=== PATIENT | male | born 1985 | race Caucasian/White ===

== ENCOUNTER 2017-04-28 21:49 | Emergency (ER) | payer BC ==
[~2017-04-28] VITALS: Ht 170.2 cm; Wt 68.0 kg
[2017-04-28 21:56] VITALS: Ht 170.2 cm; Wt 68.0 kg
[2017-04-29] MEDS ORDERED: HYDROCODONE/APAP (5/325) TAB PO ONE
[2017-04-29 00:09] LABS: BASOPHILS % 0.5 % (0.0-2.0); EOSINOPHILS # 0.2 10^3/ul (0.0-0.5); EOSINOPHILS % 2.6 % (0.0-7.0); HEMATOCRIT 48.6 % (42.0-52.0); HEMOGLOBIN 16.7 g/dl (14.0-18.0); LYMPHOCYTES # 2.9 10^3/ul (0.8-2.9); MEAN CORPUSCULAR HEMOGLOBIN 33.6 pg (29.0-33.0); MEAN CORPUSCULAR HGB CONC 34.4 g/dl (32.0-37.0); MEAN CORPUSCULAR VOLUME 97.8 fl (82.0-101.0); MEAN PLATELET VOLUME 10.7 fl (7.4-10.4); MONOCYTE # 0.5 10^3/ul (0.3-0.9); MONOCYTES % 6.5 % (0.0-11.0); PLATELET COUNT 212 10^3/UL (140-415); RED BLOOD COUNT 4.97 10^6/ul (4.70-6.10); RED CELL DISTRIBUTION WIDTH 11.9 % (11.5-14.5); WHITE BLOOD COUNT 7.7 10^3/ul (4.8-10.8)
[2017-04-29 00:13] LABS: ADD UMIC NO; UR ASCORBIC ACID NEGATIVE (NEGATIVE); UR BILIRUBIN (Dip) NEGATIVE (NEGATIVE); UR BLOOD (Dip) NEGATIVE (NEGATIVE); UR CLARITY CLEAR (CLEAR); UR COLOR COLORLESS (YELLOW); UR GLUCOSE (Dip) NEGATIVE (NEGATIVE); UR KETONES (Dip) NEGATIVE (NEGATIVE); UR LEUKOCYTE ESTERASE (Dip) NEGATIVE Leu/ul (NEGATIVE); UR NITRITE (Dip) NEGATIVE (NEGATIVE); UR SPECIFIC GRAVITY (Dip) 1.001 (1.003-1.030); UR TOTAL PROTEIN (Dip) NEGATIVE (NEGATIVE); UR UROBILINOGEN (Dip) NEGATIVE (NEGATIVE)
--- NOTE | 2017-04-29 00:23 | ERD ---
ER Documentation Chief Complaint Chief Complaint abdominal pain w/ back pain x 2 weeks HPI This is a 31-year-old male who presents the emergency department complaining of abdominal pain for the past 3 weeks. States the pain was all over. States he does not have any abdominal pain currently. States that he took Tylenol for pain. He had some diarrhea. 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 States he has pain going into his buttocks. Denies any fevers or chills, nausea or vomiting, dysuria, hematuria. ROS All systems reviewed and are negative except as per history of present illness. Medications Home Meds Active Scripts Acetaminophen* (Tylophen*) 500 Mg Capsule, 1 CAP PO Q6H Y for PAIN AND OR ELEVATED TEMP, #30 CAP Prov:CONNOR MCCLELLAN PA-C 04/29/17 Dicyclomine Hcl* (Bentyl*) 10 Mg Capsule, 10 MG PO QID, #20 CAP Prov:CONNOR MCCLELLAN PA-C 04/29/17 Naproxen* (Naprosyn*) 500 Mg Tablet, 500 MG PO BID Y for PAIN AND/OR INFLAMMATION, #30 TAB Prov:CONNOR MCCLELLAN PA-C 04/29/17 Allergies Allergies: Coded Allergies: No Known Allergy (Unverified , 04/28/17) PMhx/Soc Hx Psychiatric Problems: Yes (anxiety) Hx Alcohol Use: Yes (32 ozx4 daily) Hx Substance Use: No Hx Tobacco Use: Yes (cigar daily) Smoking Status: Current every day smoker Physical Exam Vitals Vital Signs Date Time Temp Pulse Resp B/P Pulse Ox O2 Delivery O2 Flow Rate FiO2 04/28/17 21:56 98.3 83 20 130/70 98 Physical Exam Const: NAD Head: Atraumatic Eyes: Normal Conjunctiva ENT: Normal External Ears, Nose and Mouth. Neck: Full range of motion..~ No meningismus. Resp: Clear to auscultation bilaterally Cardio: Regular rate and rhythm, no murmurs Abd: Soft, non tender, non distended. Normal bowel sounds. No tenderness to McBurney's. Skin: No petechiae or rashes Back: Lumbar spine midline tenderness and bilateral paraspinal tenderness. Pain with trunk extension. Pulses 2+. Distal neurovascularly intact. Ext: No cyanosis, or edema Neur: Awake and alert Psych: Normal Mood and Affect Result Diagram: 04/28/17 2345 04/28/17 2345 Results 24 hrs Laboratory Tests Test 04/28/17 23:45 White Blood Count 7.710^3/ul Red Blood Count 4.9710^6/ul Hemoglobin 16.7g/dl Hematocrit 48.6% Mean Corpuscular Volume 97.8fl Mean Corpuscular Hemoglobin 33.6pg Mean Corpuscular Hemoglobin Concent 34.4g/dl Red Cell Distribution Width 11.9% Platelet Count 73457^3/UL Mean Platelet Volume 10.7fl Neutrophils % 52.0% Lymphocytes % 38.0% Monocytes % 6.5% Eosinophils % 2.6% Basophils % 0.5% Nucleated Red Blood Cells % 0.0/100WBC Neutrophils # 4.010^3/ul Lymphocytes # 2.910^3/ul Monocytes # 0.510^3/ul Eosinophils # 0.210^3/ul Basophils # 0.010^3/ul Nucleated Red Blood Cells # 0.010^3/ul Urine Color COLORLESS Urine Clarity CLEAR Urine pH 6.0 Urine Specific [place] 1.001 Urine Ketones NEGATIVEmg/dL Urine Nitrite NEGATIVEmg/dL Urine Bilirubin NEGATIVEmg/dL Urine Urobilinogen NEGATIVEmg/dL Urine Leukocyte Esterase NEGATIVELeu/ul Urine Hemoglobin NEGATIVEmg/dL Urine Glucose NEGATIVEmg/dL Urine Total Protein NEGATIVEmg/dl Sodium Level 146mmol/L Potassium Level 4.3mmol/L Chloride Level 102mmol/L Carbon Dioxide Level 32mmol/L Anion Gap 16 Blood Urea Nitrogen 4mg/dl Creatinine 0.82mg/dl Glucose Level 81mg/dl Calcium Level 9.9mg/dl Total Bilirubin 0.2mg/dl Direct Bilirubin 0.00mg/dl Indirect Bilirubin 0.2mg/dl Aspartate Amino Transf (AST/SGOT) 26IU/L Alanine Aminotransferase (ALT/SGPT) 36IU/L Alkaline Phosphatase 59IU/L Total Protein 8.2g/dl Albumin 4.8g/dl Globulin 3.40g/dl Albumin/Globulin Ratio 1.41 Lipase 11U/L Current Medications Medications (Trade) Dose Ordered Sig/Marisa Route PRN Reason Start Time Stop Time Status Last Admin Dose Admin Acetaminophen/ Hydrocodone Bitart ([place] (5/457)) 1 tab ONCE ONCE PO 04/29/17 00:00 04/29/17 00:01 DC 04/28/17 23:49 DIAGNOSTIC IMAGING REPORT Patient: LÓPEZ DIAL : 1985 Age: 31 Sex: M MR #: [id number] DOS: 04/28/17 0000 Ordering MD: CONNOR MCCLELLAN PA-C Location: [facility] Room/Bed: PROCEDURE: XR Lumbar Spine. CLINICAL INDICATION: Low back pain. Lumbar radicular symptoms. TECHNIQUE: AP, cone-down lateral, and lateral views of the lumbar spine were obtained. COMPARISON: None. FINDINGS: There is 6 [id number] lumbar vertebral bodies. Mineralization is within normal limits. Vertebral bodies are normal in height. No fracture is identified. Lumbar lordosis is preserved. No vertebral subluxation is seen. The intervertebral discs are normal in height. Paraspinal contours are unremarkable. RPTAT:HJJR IMPRESSION: 1. There are 6 [id number] lumbar vertebral bodies. 2. Otherwise unremarkable lumbar spine series without findings to explain the patient's provided history. Physician Xochitl Date Time Electronically viewed and signed by Physician Xochitl on 04/29/2017 00:37 JR/ CC: CONNOR MCCLELLAN PA-C Procedures/MDM This a 31-year-old male who presents the emergency department today complaining of abdominal pain for the past 3 weeks that is intermittent but none currently. Patient described the pain as being all over. He has no abdominal pain on physical exam. He did have some lumbar spine midline tenderness that he indicated radiated into his buttocks and therefore it did obtain laboratory work as well as imaging. Laboratory workup shows no elevated white blood cell count. He is not anemic. Platelets are within normal limits. Sodium is mildly elevated otherwise electrolytes are within normal limits. Glucose is within normal limits. Liver enzymes are within normal limits. Lipase is within normal limits. UA is negative for infection. Lumbar spine images show 6 [id number] lumbar vertebral bodies. There is no fracture. There is no subluxation. Intervertebral discs are normal in height. Symptoms at this time is consistent with abdominal pain of uncertain etiology however patient denies any abdominal pain currently. Low suspicion for acute surgical abdomen. Patient is afebrile and otherwise well-appearing. He has no elevated white blood cell count. Low suspicion for diverticulitis. Patient also has low back pain that appears to be acute on chronic and likely musculoskeletal. Patient was given one [place] here in the emergency department. Given a prescription for Naprosyn and Tylenol and Bentyl for home. At this time the patient is stable for discharge and outpatient management. Patient should follow up with their PCP in the next 1-2 days. Given a list of community resources. They may return to the emergency department sooner for any persistent or worsening of symptoms. Patient understood and agreed with the plan. Departure Diagnosis: Primary Impression: Abdominal pain Abdominal location: unspecified location Qualified Code: R10.9 - Abdominal pain, unspecified abdominal location Additional Impression: Back pain Back pain location: low back pain Chronicity: unspecified Back pain laterality: midline Sciatica presence: unspecified whether sciatica present Qualified Code: M54.5 - Midline low back pain, unspecified chronicity, with sciatica presence unspecified Condition: CONNOR Botello PA-C Apr 29, 2017 00:23
[2017-04-29 00:27] LABS: ALBUMIN 4.8 g/dl (3.3-4.9); ALBUMIN/GLOBULIN RATIO 1.41; BILIRUBIN,INDIRECT 0.2 mg/dl (0-1.1); BILIRUBIN,TOTAL 0.2 mg/dl (0.2-1.3); CALCIUM 9.9 mg/dl (8.4-10.2); CREATININE 0.82 mg/dl (0.61-1.24); POTASSIUM 4.3 mmol/L (3.5-5.1); TOTAL PROTEIN 8.2 g/dl (6.1-8.1)
--- NOTE | 2017-04-29 00:37 | RADRPT ---
PROCEDURE: XR Lumbar Spine. CLINICAL INDICATION: Low back pain. Lumbar radicular symptoms. TECHNIQUE: AP, cone-down lateral, and lateral views of the lumbar spine were obtained. COMPARISON: None. FINDINGS: There is 6 [id number] lumbar vertebral bodies. Mineralization is within normal limits. Vertebr al bodies are normal in height. No fracture is identified. Lumbar lordosis is preserved. No verte bral subluxation is seen. The intervertebral discs are normal in height. Paraspinal contours are u nremarkable. RPTAT:HJJR IMPRESSION: 1. There are 6 tug-qab-lryrcie lumbar vertebral bodies. 2. Otherwise unremarkable lumbar spine series without findings to explain the patient's provided his tory. Physician Xochitl Date Time Electronically viewed and signed by Physician Xochitl on 04/29/2017 00:37 /
[2017-04-29] MEDS ORDERED: NAPR-260 PO (01:14)
[2017-04-29] MEDS ORDERED: DICY10CA60 PO (01:14)
[2017-04-29] MEDS ORDERED: ACET500C5 PO (01:15)
[2017-04-29 01:23] VITALS: BP 127/81; PULSE 72; RESP 20; TEMP 98.3
== END 2017-04-29 01:36 | disposition home or self-care (01) ==
LOC: EDBD 21:49 → FTE 21:49
DX: M54.5 Low back pain (principal); F17.210 Nicotine dependence, cigarettes, uncomplicated
CPT/HCPCS: 72100; 80053; 81003; 83690; 85025; 99284; Z7610